=== PATIENT | female | born 1995 | race African-American/Black ===

== ENCOUNTER 2018-02-21 06:06 | Inpatient (IN) ==
[2018-02-21 08:22] LABS: Basophils % 0.2 % (0.0-0.8); Eosinophils # 0.1 10*3/uL (0.0-0.87); Eosinophils % 0.6 % (0.00-10.9); Hematocrit 37.1 VOL% (35.7-47.0); Hemoglobin 11.8 GM/DL (12.0-16.0); Immature Granulocytes % 0.4 %; Immature Granulocytes Absolute 0.04 #; Lymphocytes # 1.4 10*3/uL (1.4-4.0); Lymphocytes % 14.2 % (21.3-54.2); Mean Corpuscular HGB Conc 31.8 GM/DL (32-36); Mean Corpuscular Hemoglobin 25 PG (27-34); Mean Platelet Volume 9.5 FL (9.6-12.0); Monocytes # 0.7 10*3/uL (0.11-0.8); Monocytes % 7.3 % (1.7-12.7); Neutrophils # 7.8 10*3/uL (1.4-7.4); Neutrophils % 77.3 % (38.7-73.9); Platelet Count 288 T/CUMM (130-400); Red Blood Count 4.82 MC/CUMM (3.8-5.5); Red Cell Distribution Width 16.1 % (9.3-17.3); White Blood Count 10.1 T/CUMM (4-12)
[2018-02-21 09:00] LABS: Albumin 2.8 G/DL (3.4-5.0); Bilirubin,Total 0.6 MG/DL (0.2-1.0); Calcium 8.8 MG/DL (8.5-10.1); Osmolality,Calculated 272.5 MOS/KG (273-304); Potassium 4.1 MMOL/L (3.5-5.1); Total Protein 6.8 G/DL (6.4-8.3)
[2018-02-22 02:46] LABS: Basophils % 0.2 % (0.0-0.8); Eosinophils % 0.1 % (0.00-10.9); Hematocrit 28.6 VOL% (35.7-47.0); Hemoglobin 9.4 GM/DL (12.0-16.0); Immature Granulocytes % 0.5 %; Immature Granulocytes Absolute 0.09 #; Lymphocytes # 1.6 10*3/uL (1.4-4.0); Lymphocytes % 9.7 % (21.3-54.2); Mean Corpuscular HGB Conc 32.9 GM/DL (32-36); Mean Corpuscular Hemoglobin 25 PG (27-34); Mean Corpuscular Volume 76.1 FL (87-102); Mean Platelet Volume 9.9 FL (9.6-12.0); Monocytes # 1.2 10*3/uL (0.11-0.8); Monocytes % 7.2 % (1.7-12.7); Neutrophils # 13.7 10*3/uL (1.4-7.4); Neutrophils % 82.3 % (38.7-73.9); Platelet Count 244 T/CUMM (130-400); Red Blood Count 3.76 MC/CUMM (3.8-5.5); Red Cell Distribution Width 15.9 % (9.3-17.3); White Blood Count 16.6 T/CUMM (4-12)
[2018-02-23 07:43] VITALS: BP 109/68
== END 2018-02-23 12:10 | disposition home or self-care (01) | DRG 775 ==
LOC: N.LD 06:06 → N.OB 16:55
PROVIDERS: ADMIT Obstetrics & Gynecology; ATTEND Obstetrics & Gynecology

== ENCOUNTER 2020-07-01 00:05 | Inpatient (IN) ==
[2020-07-01] MEDS ORDERED: MEPERIDINE 50 MG/1 ML VIAL IM PRN (00:16)
[2020-07-01] MEDS ORDERED: BUTORPHANOL 2 MG/ML VIAL IV PRN (00:16)
[2020-07-01] MEDS ORDERED: ONDANSETRON 4 MG/2 ML VIAL IV PRN ×2 (00:16→13:30)
[2020-07-01] MEDS ORDERED: ACETAMINOPHEN 325 MG TABLET PO PRN (00:16)
[2020-07-01 00:51] LABS: Basophils % 0.1 % (0.0-0.8); Eosinophils # 0.2 10*3/uL (0.0-0.87); Eosinophils % 2.6 % (0.00-10.9); Hematocrit 31.1 VOL% (35.7-47.0); Hemoglobin 9.6 GM/DL (12.0-16.0); Immature Granulocytes % 1.3 %; Lymphocytes # 1.5 10*3/uL (1.4-4.0); Lymphocytes % 20.1 % (21.3-54.2); Mean Corpuscular HGB Conc 30.9 GM/DL (32-36); Mean Corpuscular Volume 69.6 FL (87-102); Mean Platelet Volume 9.2 FL (9.6-12.0); Monocytes % 6.8 % (1.7-12.7); NRBC # 0.02 10*3/uL; Neutrophils % 69.1 % (38.7-73.9); Platelet Count 278 T/CUMM (130-400); Red Blood Count 4.47 MC/CUMM (3.8-5.5); White Blood Count 7.7 T/CUMM (4-12)
[2020-07-01 01:29] LABS: Albumin 2.8 G/DL (3.4-5.0); Bilirubin,Total 0.8 MG/DL (0.2-1.0); Calcium 9.1 MG/DL (8.5-10.1); Osmolality,Calculated 268.1 MOS/KG (273-304)
[2020-07-01] MEDS ORDERED: MEPERIDINE 50 MG/1 ML VIAL IV PRN (07:45)
[2020-07-01] MEDS ORDERED: ePHEDrine 50 MG/ML VIAL IV PRN (07:51)
[2020-07-01] MEDS ORDERED: LACTATED RINGERS 250 ML IV PRN (07:51)
[2020-07-01] MEDS ORDERED: NALOXONE 0.4 MG/ML VIAL IV PRN (07:51)
[2020-07-01] MEDS ORDERED: FAMOTIDINE 20 MG/2 ML VIAL IV ONE ×2 (07:52→07:55)
[2020-07-01] MEDS ORDERED: CITRIC ACID/SODIUM CITRATE 30 ML UDCUP PO ONE (07:53)
[2020-07-01] MEDS ORDERED: CITRIC ACID/SODIUM CITRATE 30 ML UDCUP ONE (07:54)
[2020-07-01] MEDS ORDERED: fentaNYL 2 MCG/ROPIV 0.2% EPID 100 ML EPIDURAL SCH (08:00)
[2020-07-01] MEDS: LACTATED RINGERS 1,000 ML IV SCH ×2 (08:00→09:43)
[2020-07-01] MEDS ORDERED: OXYTOCIN/LR 20 UNIT/1,000 ML BAG IV SCH (10:00)
[2020-07-01] MEDS ORDERED: ROPIVACAINE 0.5% 30 ML VIAL ONE (10:16)
[2020-07-01] MEDS ORDERED: TRANEXAMIC ACID 1,000 MG/10 ML VIAL ONE (10:33)
[2020-07-01] MEDS ORDERED: miSOPROStoL 200 MCG TABLET ONE (10:33)
[2020-07-01] MEDS ORDERED: METHYLERGONOVINE 0.2 MG/1 ML AMP ONE (10:34)
[2020-07-01] MEDS ORDERED: CARBOPROST TROMETHAMINE 250 MCG/ML AMP IM ONE (10:34)
[2020-07-01 11:26] LABS: Cord Arterial Blood HCO3 26.4 MMOL/L
[2020-07-01 11:28] LABS: Cord Venous Blood HCO3 19.5 MMOL/L; Cord Venous Blood PCO2 58.7 MMHG; Cord Venous Blood PO2 19.5
[2020-07-01] MEDS ORDERED: oxyCODONE/ACETAMINOPHEN 5-325 MG TABLET PO PRN (13:30)
[2020-07-01] MEDS ORDERED: MEASLES/MUMPS/RUBELLA VACCINE 0.5 ML VIAL SUBCUT ONE (13:30)
[2020-07-01] MEDS ORDERED: LANOLIN 50% CREAM 0.3 OZ TUBE TOP PRN (13:30)
[2020-07-01] MEDS ORDERED: OXYTOCIN/LR 20 UNIT/1,000 ML BAG IV ONE (13:30)
[2020-07-01] MEDS ORDERED: BISACODYL 10 MG SUPP RECTAL PRN (13:30)
[2020-07-01] MEDS ORDERED: BENZOCAINE 20%/MENTHOL 0.5% SPRAY 56 GM CAN TOP PRN (13:30)
[2020-07-01] MEDS ORDERED: WITCH HAZEL PADS 100/JAR TOP PRN (13:30)
[2020-07-01] MEDS ORDERED: RHO(D) IMMUNE GLOBULIN 300 MCG SYRINGE IM ONE (13:30)
[2020-07-01] MEDS ORDERED: DIPH/TET/ACEL PERT BOOSTER VACCINE 0.5 ML VIAL IM ONE (13:30)
[2020-07-01] MEDS ORDERED: HYDROCORTISONE 2.5% RECTAL CREAM 30 GM TUBE TOP PRN (13:30)
[2020-07-01] MEDS: FERROUS SULFATE 325 MG TABLET PO SCH (14:35)
[2020-07-01] MEDS: IBUPROFEN 800 MG TABLET PO PRN (15:43)
[2020-07-01] MEDS: DOCUSATE SODIUM 100 MG CAPSULE PO SCH (20:50)
[2020-07-02] MEDS: ACETAMINOPHEN 325 MG TABLET PO PRN ×2 (00:44→17:38)
[2020-07-02] MEDS: IBUPROFEN 800 MG TABLET PO PRN ×2 (03:44→23:52)
[2020-07-02 06:18] LABS: Basophils % 0.3 % (0.0-0.8); Eosinophils # 0.2 10*3/uL (0.0-0.87); Eosinophils % 2.1 % (0.00-10.9); Hematocrit 30.7 VOL% (35.7-47.0); Hemoglobin 9.3 GM/DL (12.0-16.0); Immature Granulocytes % 0.4 %; Immature Granulocytes Absolute 0.04 #; Lymphocytes # 1.7 10*3/uL (1.4-4.0); Lymphocytes % 15.9 % (21.3-54.2); Mean Corpuscular HGB Conc 30.3 GM/DL (32-36); Mean Corpuscular Volume 70.7 FL (87-102); Monocytes % 8.7 % (1.7-12.7); Neutrophils % 72.6 % (38.7-73.9); Platelet Count 249 T/CUMM (130-400); Red Blood Count 4.34 MC/CUMM (3.8-5.5)
[2020-07-02] MEDS: oxyCODONE/ACETAMINOPHEN 5-325 MG TABLET PO PRN ×2 (08:19→23:56)
[2020-07-02] MEDS: FERROUS SULFATE 325 MG TABLET PO SCH (08:19)
[2020-07-02] MEDS: DOCUSATE SODIUM 100 MG CAPSULE PO SCH ×2 (08:19→20:53)
[2020-07-03 07:40] VITALS: BP 91/51
[2020-07-03] MEDS: DOCUSATE SODIUM 100 MG CAPSULE PO SCH (08:37)
[2020-07-03] MEDS: FERROUS SULFATE 325 MG TABLET PO SCH (08:37)
== END 2020-07-03 12:30 | disposition home or self-care (01) | DRG 807 ==
LOC: N.LD 00:05 → N.OB 13:18
PROVIDERS: ADMIT Obstetrics & Gynecology; ATTEND Obstetrics & Gynecology